=== PATIENT | female | born 1980 | race Caucasian/White ===

== ENCOUNTER → 2017-01-18 | Outpatient (CLI) | payer OTHER ==
[~2017-01-18] MED LIST: ALBUAER INH; DICY10CA12 PO; ETONMIS VAGRING; FLUT0.15; MULT-506 PO; OMEG1CAP81 PO; PSYL55.43 PO
--- NOTE | 2017-01-18 16:25 | DIAGNOSTIC IMAGING REPORT ---
MRI right shoulder UPPER EXT JOINT WITHOUT CLINICAL HISTORY: Pain instability TECHNIQUE: Multiaxial MRI acquisition COMPARISON STUDY: None FINDINGS: Signal characteristics the osseous structures are uniform throughout. Biceps tendon is intact within the bicipital groove. There is trace amount of fluid inferior to the acromion as well as within the subdeltoid bursa. There are findings suggesting a high-grade partial and/or focally complete anterior and/or leading margin of the supraspinatus tendon. There is no evidence for musculotendinous retraction. Glenoid labrum is unremarkable. There is moderate subscapularis tendinitis. Infraspinatus is unremarkable. IMPRESSION: 1. Moderate supraspinatus tendinitis with a small focal high-grade partial and/or small full-thickness tear of the anterior and/or leading-edge of the supraspinatus. 2. Moderate subscapularis tendinitis. 3. Small amount of fluid within the subdeltoid bursa and subacromial region. 4. Study is otherwise negative. Electronically signed by: Kody Spicer M.D. 01/18/2017 4:24 PM Dictated Date/Time: 01/18/2017 4:19 PM
== END | disposition home or self-care (01) ==
LOC: C.MRI 15:28
PROVIDERS: ATTEND Family Medicine
DX: S49.91XA Unspecified injury of right shoulder and upper arm, initial encounter (principal); S46.011A Strain of muscle(s) and tendon(s) of the rotator cuff of right shoulder, initial encounter; M75.81 Other shoulder lesions, right shoulder; M75.51 Bursitis of right shoulder; X58.XXXA Exposure to other specified factors, initial encounter